=== PATIENT | male | born 1995 | race Hispanic/Latino ===

== ENCOUNTER 2023-11-29 08:05 | Emergency (ER) | payer OTHER ==
[~2023-11-29] VITALS: Ht 172.7 cm; Wt 113.6 kg
[2023-11-29] MEDS ORDERED: GABAPENTIN 300 MG CAP PO ONE (12:25)
[2023-11-29] MEDS ORDERED: KETOROLAC 30 MG/ML 1ML VIAL IV ONE (12:25)
[2023-11-29 12:56] LABS: BASO # 0.1 10^3/uL (0.0-0.2); BASO % 0.5 % (0.0-1.0); EOS # 0.1 10^3/uL (0.0-0.5); EOS % 0.6 % (0.0-3.0); HEMATOCRIT 45.9 % (42.0-52.0); HEMOGLOBIN 15.9 g/dl (13.5-17.5); LYMPH # 2.5 10^3/uL (1.5-5.0); LYMPH % 24.3 % (24.0-44.0); MEAN CORPUSCULAR HEMOGLOBIN 31.4 pg (27.0-33.0); MEAN CORPUSCULAR HGB CONC 34.6 g/dl (32.0-36.5); MEAN CORPUSCULAR VOLUME 90.5 fl (80.0-96.0); MONO # 0.5 10^3/uL (0.0-0.8); MONO % 4.7 % (2.0-8.0); NEUTROPHILS # 7.1 10^3/uL (1.5-8.5); NEUTROPHILS % 69.6 % (36.0-66.0); PLATELET COUNT, AUTOMATED 235 10^3/uL (150-450); RED BLOOD COUNT 5.07 10^6/uL (4.30-6.10); WHITE BLOOD COUNT 10.2 10^3/uL (4.0-10.0)
[2023-11-29 13:04] LABS: ERYTHROCYTE SEDIMENTATION RATE 9 mm/hr (0-15)
[2023-11-29 13:17] LABS: C REACTIVE PROTEIN QUANTITATIV < 0.40 MG/DL (<1.0)
[2023-11-29 13:18] LABS: BLOOD UREA NITROGEN 11 MG/DL (9-23); CALCIUM LEVEL 9.3 MG/DL (8.5-10.1); CARBON DIOXIDE LEVEL 24 MMOL/L (20-31); CHLORIDE LEVEL 107 MMOL/L (98-107); CREATININE FOR GFR 0.75 MG/DL (0.70-1.30); GLOMERULAR FILTRATION RATE > 60.0 (>60); GLUCOSE, FASTING 101 MG/DL (60-100); POTASSIUM SERUM 4.1 MMOL/L (3.5-5.1); SODIUM LEVEL 138 MMOL/L (136-145)
[2023-11-29] MEDS ORDERED: CYCL-707 PO (13:40)
[2023-11-29] MEDS ORDERED: IBUP80TA PO (13:40)
[2023-11-29] MEDS ORDERED: LIDO5DIS41 TD (13:40)
[2023-11-29] MEDS ORDERED: GABA-284 PO (13:40)
[2023-11-29 13:45] VITALS: BP 124/70; TEMP 98.2; O2SAT 98
== END 2023-11-29 13:49 | disposition home or self-care (01) ==
LOC: M ED 08:05
DX: M48.061 Spinal stenosis, lumbar region without neurogenic claudication (principal); M54.50 Low back pain, unspecified; Z79.899 Other long term (current) drug therapy; Z79.1 Long term (current) use of non-steroidal anti-inflammatories (NSAID); F12.10 Cannabis abuse, uncomplicated
CPT/HCPCS: 72128; 72131; 80048; 85025; 85652; 86140; 96374; 99284; J1885